=== PATIENT | female | born 1945 | race Caucasian/White ===

== ENCOUNTER 2025-07-10 05:47 | Inpatient (IN) | payer MEDICARE ==
[~2025-07-10] VITALS: Ht 165.1 cm; Wt 111.1 kg
[2025-07-10 06:52] VITALS: TEMP 97.7
[2025-07-10] MEDS: ONDANSETRON HCL INJ 2MG/ML 2ML 2 MG/ML VIAL IV STA (07:59)
[2025-07-10] MEDS: SODIUM CHLORIDE 0.9% 1000ML 1,000 ML IV ONE (08:00)
[2025-07-10] MEDS: Morphine 2mg Syringe 2 MG/ML SYR IV ONE (08:00)
[2025-07-10 10:30] VITALS: PULSE 52; RESP 16
[2025-07-10] MEDS: HYDROCODONE/APAP 5MG-325MG TAB PO ONE (10:36)
[2025-07-10] MEDS ORDERED: HYDROCHLOROTHIA25 MG (12:04)
[2025-07-10] MEDS ORDERED: LOSARTAN POTASS25 MG PO (12:04)
[2025-07-10] MEDS ORDERED: TIZANIDINE HCL4 M1 PO (12:04)
[2025-07-10] MEDS ORDERED: HYDROCODON-ACE1 EA11 PO (12:04)
[2025-07-10 13:00] VITALS: BP 121/56; PULSE 78; PULSE 87; RESP 17; RESP 18; TEMP 97.8; O2SAT 98
[2025-07-10] MEDS: ONDANSETRON HCL INJ 2MG/ML 2ML 2 MG/ML VIAL IV PRN (14:32)
[2025-07-10] MEDS: Morphine 2mg Syringe 2 MG/ML SYR IV PRN (14:32)
[2025-07-10 15:14] VITALS: BP 100/50; PULSE 78; RESP 18; TEMP 97.8; O2SAT 98
[2025-07-10 19:45] VITALS: BP 146/69; PULSE 83; RESP 18; TEMP 97.9; O2SAT 99
[2025-07-10 20:00] VITALS: BP 146/69; PULSE 83; RESP 18; TEMP 97.9; O2SAT 99
[2025-07-11] VITALS (7 sets, daily range): BP systolic 131–150; BP diastolic 61–75; PULSE 82–89; RESP 18–20; TEMP 97.9–99.1; O2SAT 94–99
[2025-07-11 05:39] LABS: BASOPHILS % 0.7 % (0.0-1.0); EOSINOPHILS % 0.8 % (0.0-6.0); LYMPHOCYTES % 27.3 % (18.0-39.1); MONOCYTES % 8.3 % (4.4-11.3); NEUTROPHILS % 62.3 % (38.7-80.0); RED CELL DISTRIBUTION WIDTH 13.6 % (11.7-14.4)
[2025-07-11 06:00] LABS: EST GLOMERULAR FILTRATION RATE 36.0 ML/MIN (>=60)
[2025-07-12] VITALS (8 sets, daily range): BP systolic 114–165; BP diastolic 62–99; PULSE 73–92; RESP 18–20; TEMP 98–98.6; O2SAT 96–100
[2025-07-12] MEDS: SODIUM CHLORIDE 0.9% 1000ML 1,000 ML IV SCH (11:33)
[2025-07-12] MEDS: HYDROCHLOROTHIAZIDE 25 MG TAB PO SCH (11:33)
[2025-07-12] MEDS: LOSARTAN POTASSIUM 25 MG TAB PO SCH (11:33)
[2025-07-12] MEDS: LIDOCAINE 4% PATCH TP SCH (17:09)
[2025-07-12] MEDS: HYDROCODONE/APAP 10MG-325MG TAB PO PRN (17:17)
[2025-07-13] VITALS (7 sets, daily range): BP systolic 127–148; BP diastolic 64–106; PULSE 71–98; RESP 18–22; TEMP 98–98.9; O2SAT 96–100
[2025-07-13 07:15] LABS: EST GLOMERULAR FILTRATION RATE 49.0 ML/MIN (>=60)
[2025-07-14] VITALS (8 sets, daily range): BP systolic 107–140; BP diastolic 53–95; PULSE 77–102; RESP 20; TEMP 98.2–100; O2SAT 97–100
[2025-07-14 06:05] LABS: EST GLOMERULAR FILTRATION RATE 46.0 ML/MIN (>=60)
[2025-07-15] VITALS (9 sets, daily range): BP systolic 87–144; BP diastolic 45–69; PULSE 77–96; RESP 18–22; TEMP 97.7–100.6; O2SAT 90–100
[2025-07-15] MEDS: ACETAMINOPHEN 325 MG TAB PO PRN (00:26)
[2025-07-15 06:11] LABS: BASOPHILS % 0.3 % (0.0-1.0); EOSINOPHILS % 0.1 % (0.0-6.0); LYMPHOCYTES % 23.2 % (18.0-39.1); MONOCYTES % 11.2 % (4.4-11.3); NEUTROPHILS % 64.5 % (38.7-80.0); RED CELL DISTRIBUTION WIDTH 13.2 % (11.7-14.4)
[2025-07-15 06:41] LABS: EST GLOMERULAR FILTRATION RATE 49.0 ML/MIN (>=60)
[2025-07-15 11:13] LABS: LEUKOCYTE ESTERASE ,URINE NEGATIVE (NEGATIVE); PROTEIN,URINE DIPSTICK NEGATIVE (NEGATIVE); URINE UROBILINOGEN 1 mg/dL (0.2 - 1)
[2025-07-15 11:36] LABS: EPITHELIAL CELLS,URINE MODERATE /LPF
[2025-07-15 11:38] LABS: WBC,URINE (MAN) 0-5 /HPF (0-5)
[2025-07-16] VITALS (9 sets, daily range): BP systolic 105–129; BP diastolic 50–94; PULSE 79–89; RESP 17–20; TEMP 98.5–100.3; O2SAT 91–100
[2025-07-16 05:37] LABS: BASOPHILS % 0.3 % (0.0-1.0); EOSINOPHILS % 0.4 % (0.0-6.0); LYMPHOCYTES % 20.5 % (18.0-39.1); MONOCYTES % 8.7 % (4.4-11.3); NEUTROPHILS % 69.5 % (38.7-80.0); RED CELL DISTRIBUTION WIDTH 12.9 % (11.7-14.4)
[2025-07-16 06:34] LABS: EST GLOMERULAR FILTRATION RATE 53.0 ML/MIN (>=60)
[2025-07-16] MEDS: RIVASTIGMINE PATCH 4.6MG/24 HOURS PATCH TD SCH (09:05)
[2025-07-16] MEDS: HYDROMORPHONE 1MG/1ML INJ IV PRN (16:18)
[2025-07-17] VITALS (7 sets, daily range): BP systolic 112–151; BP diastolic 52–78; PULSE 74–96; RESP 18–20; TEMP 97.7–99.7; O2SAT 97–100
[2025-07-17 06:11] LABS: BASOPHILS % 0.5 % (0.0-1.0); EOSINOPHILS % 0.3 % (0.0-6.0); LYMPHOCYTES % 16.8 % (18.0-39.1); MONOCYTES % 10.5 % (4.4-11.3); NEUTROPHILS % 71.5 % (38.7-80.0); RED CELL DISTRIBUTION WIDTH 12.9 % (11.7-14.4)
[2025-07-17 06:38] LABS: EST GLOMERULAR FILTRATION RATE 58.0 ML/MIN (>=60)
[2025-07-17] MEDS: HYDROCODONE/APAP 10MG-325MG TAB PO PRN (11:15)
[2025-07-18] VITALS (9 sets, daily range): BP systolic 107–140; BP diastolic 47–75; PULSE 64–81; RESP 17–20; TEMP 97.7–99.7; O2SAT 94–100
[2025-07-18 05:55] LABS: BASOPHILS % 0.7 % (0.0-1.0); EOSINOPHILS % 1.7 % (0.0-6.0); LYMPHOCYTES % 23.2 % (18.0-39.1); MONOCYTES % 11.0 % (4.4-11.3); NEUTROPHILS % 62.8 % (38.7-80.0); RED CELL DISTRIBUTION WIDTH 13.0 % (11.7-14.4)
[2025-07-18 06:22] LABS: EST GLOMERULAR FILTRATION RATE 49.0 ML/MIN (>=60)
[2025-07-18] MEDS: BISACODYL 5 MG TAB EC PO ONE (09:46)
[2025-07-18] MEDS: POTASSIUM CHLORIDE 20 MEQ TAB CR PO STA (09:47)
[2025-07-19] VITALS (9 sets, daily range): BP systolic 100–143; BP diastolic 56–94; PULSE 62–84; RESP 16–20; TEMP 97.5–98.8; O2SAT 94–100
[2025-07-19] MEDS: LACTULOSE SYRUP 20 GM/30 ML UDC PO PRN (18:36)
[2025-07-19] MEDS: BISACODYL 10 MG SUPP PR ONE (21:22)
[2025-07-20 03:27] VITALS: BP 117/73; PULSE 77; RESP 18; TEMP 98.7; O2SAT 100
[2025-07-20 08:15] VITALS: BP 126/65; PULSE 73; RESP 20; TEMP 98.7; O2SAT 100
[2025-07-20 08:17] VITALS: BP 126/65; PULSE 73; RESP 20; TEMP 98.7; O2SAT 100
[2025-07-20] MEDS: BISACODYL 10 MG SUPP PR PRN (09:37)
[2025-07-20 12:30] VITALS: BP 137/68; PULSE 91; RESP 19; TEMP 97.9; O2SAT 96
[2025-07-20 16:04] VITALS: BP 113/58; PULSE 86; RESP 20; TEMP 98.2; O2SAT 96
== END 2025-07-20 16:45 | disposition home health service (06) | DRG 552 ==
LOC: FSED 06:21 → ERHOLD 09:46 → MED/SURG2 14:00
PROVIDERS: ADMIT Family Medicine; ATTEND Family Medicine
DX: S32.029A Unspecified fracture of second lumbar vertebra, initial encounter for closed fracture (principal); S22.069A Unspecified fracture of T7-T8 vertebra, initial encounter for closed fracture; N17.9 Acute kidney failure, unspecified; Z68.41 Body mass index [BMI] 40.0-44.9, adult; N39.0 Urinary tract infection, site not specified; I10 Essential (primary) hypertension; N18.9 Chronic kidney disease, unspecified; G62.9 Polyneuropathy, unspecified; G30.9 Alzheimer's disease, unspecified; F02.80 Dementia in other diseases classified elsewhere, unspecified severity, without behavioral disturbance, psychotic disturbance, mood disturbance, and anxiety; G47.33 Obstructive sleep apnea (adult) (pediatric); E66.9 Obesity, unspecified; M48.061 Spinal stenosis, lumbar region without neurogenic claudication; J44.9 Chronic obstructive pulmonary disease, unspecified; R29.6 Repeated falls; Z88.0 Allergy status to penicillin
CPT/HCPCS: 36415; 70551; 72050; 72128; 72131; 72146; 72148; 80048; 80053; 81001; 82140; 82607; 82948; 84443; 85025; 86592; 95812; 99284; J0696; J1171; J2270; J2405; J3411; J7030